=== PATIENT | female | born 1990 | race American Indian/Alaskan Native ===

== ENCOUNTER 2020-01-06 13:40 | Emergency (ER) | payer BC ==
--- NOTE | 2020-01-06 15:23 | Event Note ---
ED Screening Note Date of service: 01/06/20 Time: 15:24 ED Screening Note: 29 yo F w/ sharp lower abdominal pain x 3 days. Denies N/V, vag bleeding, vag discharge, dysuria. Reports urinary frequency. LMP Dec 03. Positive preg test w/ [facility] on Dec 28. Has been taking tylenol for pain. 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 This initial assessment/diagnostic orders/clinical plan/treatment(s) is/are subject to change based on patients health status, clinical progression and re- assessment by fellow clinical providers in the ED. Further treatment and workup at subsequent clinical providers discretion. Patient/guardian urged not to elope from the ED as their condition may be serious if not clinically assessed and [place]. Initial orders include: labs UA US
--- NOTE | 2020-01-06 16:41 | Ultrasound Report ---
US OB <= 14 weeks fetus, US OB transvaginal INDICATION / CLINICAL INFORMATION: abd pain. COMPARISON: None available. FINDINGS: Uterus measures 11 cm. A 1.5 cm gestational sac is identified corresponding to a 6 week 2 day gestation. No evidence of pole. There is a small implantation fluid collection adjacent to the gestational sac. The ovaries are normal. IMPRESSION: 1. 6 weeks 2 day size gestational sac without demonstrated pole. Signer Name: Deonte Palomino MD Signed: 01/06/2020 4:36 PM Workstation Name: [id number]
[2020-01-06 17:14] LABS: Basophils % (Auto) 0.4 % (0.0-1.8); Eosinophils # (Auto) 0.1 K/mm3 (0.0-0.4); Eosinophils % (Auto) 0.9 % (0.0-4.3); Hematocrit 37.8 % (30.3-42.9); Hemoglobin 12.3 gm/dl (10.1-14.3); Lymphocytes # (Auto) 1.4 K/mm3 (1.2-5.4); Lymphocytes % (Auto) 13.6 % (13.4-35.0); Mean Corpuscular HGB Conc 32 % (30-34); Mean Corpuscular Volume 82 fl (79-97); Monocytes # (Auto) 1.1 K/mm3 (0.0-0.8); Monocytes % (Auto) 10.8 % (0.0-7.3); Platelet Count 205 K/mm3 (140-440); Red Blood Count 4.64 M/mm3 (3.65-5.03); Red Cell Distribution Width 14.2 % (13.2-15.2)
[2020-01-06 17:28] LABS: BUN/Creatinine Ratio 12; Blood Urea Nitrogen 6 mg/dL (7-17); Calcium 9.6 mg/dL (8.4-10.2); Hemolysis Index 8
[2020-01-06 17:31] LABS: Bilirubin,Urine NEG (Negative); Blood,Urine NEG (Negative); Color,Urine Yellow (Yellow); Mucus,Urine FEW /HPF; Protein,Urine <15 mg/dL mg/dL (Negative)
[2020-01-06] MEDS ORDERED: FAMOTIDINE 20 MG TAB PO ONE (19:46)
[2020-01-06] MEDS ORDERED: METOCLOPRAMIDE 10 MG TAB PO ONE (19:46)
[2020-01-06] MEDS ORDERED: ACETAMINOPHEN 500 MG TAB PO ONE (19:46)
--- NOTE | 2020-01-06 19:47 | Emergency Department Report ---
ED Abdominal Pain HPI - General Chief Complaint: Abdominal Pain Stated Complaint: SEVERE STOMACH PAIN/PREG Source: patient Mode of arrival: Ambulatory Limitations: No Limitations - History of Present Illness Initial Comments: Patient is a [id number] female with no past medical history and who is approximately 5 weeks gestation and who presented to the ED with complaint of acute onset persistent suprapubic pain in the last 2 days, worse in the last 12 hours. 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 Patient denies vaginal bleeding, dysuria, urinary frequency and urgency, dizziness, fever, chills, cough, diarrhea, nausea and vomiting, traumatic injury or heavy lifting MD Complaint: abdominal pain -: Sudden, days(s) (2) Location: suprapubic Radiation: suprapubic Migration to: no migration Severity: severe Severity scale (0 -10): 7 Quality: cramping, aching Consistency: constant Improves With: nothing Worsens With: nothing Associated Symptoms: denies other symptoms, nausea, anorexia. denies: vomiting, diarrhea, fever, chills, constipation, hematemesis, hematochezia, melena, syncope - Related Data LMP Date: 12/03/19 Previous Rx's Medication Instructions Recorded Last Taken Type Acetaminophen [Mapap] 500 mg PO Q6H PRN #30 tablet 01/06/20 Unknown Rx Allergies Allergy/AdvReac Type Severity Reaction Status Date / Time No Known Allergies Allergy Verified 01/06/20 13:48 ED Review of Systems ROS: Stated complaint: SEVERE STOMACH PAIN/PREG Other details as noted in HPI Constitutional: malaise. denies: chills Eyes: denies: eye pain, eye discharge, vision change ENT: denies: ear pain, throat pain Respiratory: denies: cough, shortness of breath, wheezing Cardiovascular: denies: chest pain, palpitations Endocrine: no symptoms reported Gastrointestinal: abdominal pain (suprapubic). denies: nausea, diarrhea Genitourinary: denies: urgency, dysuria, discharge Musculoskeletal: back pain, arthralgia. denies: joint swelling Skin: denies: rash, lesions Neurological: denies: headache, weakness, paresthesias Psychiatric: denies: anxiety, depression Hematological/Lymphatic: denies: easy bleeding, easy bruising ED Past Medical Hx - Past Medical History Previous Medical History?: Yes Additional medical history: epilepsy - Surgical History Past Surgical History?: Yes Additional Surgical History: c section - Social History Smoking Status: Never Smoker Substance Use Type: None - Medications Home Medications: Home Medications Medication Instructions Recorded Confirmed Last Taken Type Acetaminophen [Mapap] 500 mg PO Q6H PRN #30 tablet 01/06/20 Unknown Rx ED Physical Exam - General Limitations: No Limitations General appearance: alert, in no apparent distress - Head Head exam: Present: atraumatic, normocephalic, normal inspection - Eye Eye exam: Present: normal appearance, PERRL, EOMI Pupils: Present: normal accommodation - ENT ENT exam: Present: normal exam, normal orophraynx, mucous membranes moist, TM's normal bilaterally, normal external ear exam - Neck Neck exam: Present: normal inspection, full ROM - Respiratory Respiratory exam: Present: normal lung sounds bilaterally. Absent: respiratory distress, wheezes, rales, rhonchi, chest wall tenderness, accessory muscle use, decreased breath sounds, prolonged expiratory - Cardiovascular Cardiovascular Exam: Present: regular rate, normal rhythm, normal heart sounds. Absent: systolic murmur, diastolic murmur, rubs, gallop - GI/Abdominal GI/Abdominal exam: Present: soft, tenderness (mildly tender suprapubic area), normal bowel sounds. Absent: guarding, rebound, hyperactive bowel sounds, hypoactive bowel sounds, organomegaly - Extremities Exam Extremities exam: Present: normal inspection, full ROM, normal capillary refill - Back Exam Back exam: Present: normal inspection, full ROM. Absent: tenderness, CVA tenderness (R), CVA tenderness (L), muscle spasm, paraspinal tenderness - Neurological Exam Neurological exam: Present: alert, oriented X3, CN II-XII intact, normal gait, reflexes normal - Psychiatric Psychiatric exam: Present: normal affect, normal mood - Skin Skin exam: Present: warm, dry, intact, normal color. Absent: rash ED Course Vital Signs 01/06/20 01/06/20 01/06/20 13:51 15:18 19:57 Temperature 97.6 F 97.6 F Pulse Rate 80 71 Respiratory 18 18 20 Rate Blood Pressure 114/75 114/75 O2 Sat by Pulse 100 100 Oximetry ED Medical Decision Making - Lab Data Result diagrams: 01/06/20 16:26 01/06/20 16:26 - Radiology Data Radiology results: report reviewed, image reviewed Findings [facility] [address] [place] [address] Ultrasound Report Signed Patient: JERSEY ALEX MR#: [id number] : 1990 Acct:[id number] Age/Sex: 29 / F ADM Date: 01/06/20 Loc: ED Attending Dr: Ordering Physician: MAX SHIRLEY MD Date of Service: 01/06/20 Procedure(s): US OB transvaginal Accession Number(s): [id number] cc: MAX SHIRLEY MD US OB <= 14 weeks fetus, US OB transvaginal INDICATION / CLINICAL INFORMATION: abd pain. COMPARISON: None available. FINDINGS: Uterus measures 11 cm. A 1.5 cm gestational sac is identified corresponding to a 6 week 2 day gestation. No evidence of pole. There is a small implantation fluid collection adjacent to the gestational sac. The ovaries are normal. IMPRESSION: 1. 6 weeks 2 day size gestational sac without demonstrated pole. Signer Name: Deonte Palomino MD Signed: 01/06/2020 4:36 PM Workstation Name: [id number] Transcribed By: RI Dictated By: Deonte Palomino MD Electronically Authenticated By: Deonte Palomino MD Signed Date/Time: 01/06/20 1636 DD/ 1634 - Medical Decision Making This is a 29 yo AA female who is A0 and who is approximately 5 weeks gestation and who presented to the ED with suprapubic pressure and pain. In the ED, patient is alert and oriented x 3, and is in no acute distress. Lab test results were reviewed and show hcg quant of [id number]. The rest of the lab test results are nonactionable. Transvaginal US report shows a 6 weeks 2 day size gestational sac without demonstrated pole. Patient was treated for pain and discharged home and advised to follow up with her [employer] in 5-7 days for reevaluation. Patient was advised to maintain a complete pelvic rest and to take pain medication for pain. Patient was advised to return to the ED immediately if symptoms get worse. - Differential Diagnosis Ectopic ; UTI; Ovarian cyst; Fibroids Critical care attestation.: If time is entered above; I have spent that time in minutes in the direct care of this critically ill patient, excluding procedure time. ED Disposition Clinical Impression: Abdominal pain in Qualifiers: Trimester: first trimester Qualified Code(s): O26.891 - Other specified related conditions, first trimester Disposition: TO HOME OR SELFCARE Is pt being admited?: No Does the pt Need Aspirin: No Condition: Stable Instructions: Abdominal Pain in (ED) Additional Instructions: Maintain a complete pelvic rest with no heavy lifting and straineous activity. Take medication with food, drink plenty of fluids and follow up your [employer] Physician in 5-7 days for reevaluation. Prescriptions: Acetaminophen [Mapap] 500 mg PO Q6H PRN #30 tablet PRN Reason: Pain , Severe (7-10) Referrals: PRIMARY CAREMD [Primary Care Provider] - 3-5 Days MARIELENA GABRIEL MD [Staff Physician] - 3-5 Days Time of Disposition: 19:46 Print Language: NAURUAN
[2020-01-06 21:53] VITALS: BP 138/84
== END 2020-01-06 21:52 | disposition home or self-care (01) ==
LOC: ED 13:40
DX: O26.891 Other specified pregnancy related conditions, first trimester (principal); R10.9 Unspecified abdominal pain; Z3A.01 Less than 8 weeks gestation of pregnancy; Z98.890 Other specified postprocedural states; Z79.899 Other long term (current) drug therapy
CPT/HCPCS: 36415; 76801; 76817; 80048; 81001; 84702; 85025